=== PATIENT | female | born 1950 | race Caucasian/White ===

== ENCOUNTER 2016-11-19 13:00 | Outpatient (RCR) | payer MEDICARE ==
--- NOTE | 2016-09-02 12:59 | PT/OT/ST INITIAL EVALUATION ---
Department of Health and Human Services Form Approved Health Care Financing Administration OMB No. [id number] PLAN OF CARE/ASSESSMENT FOR OUTPATIENT REHABILITATION (Complete for Initial Claims Only) 1. LAST NAME Ronaldo FIRST NAME Eileen Mayes 2. ACC # [id number] [id number] 4. PROVIDER NO. [id number] 5. TYPE: X PT 6. PRIOR THERAPY (Same condition) 7. PRIMARY DX Right shoulder tendinitis 8. SECONDARY DX Right shoulder pain/instability 9. ONSET DATE July 23, 2016 10. REFERRAL DATE 11. SOC. DATE/TIME 09/01/2016 2:33 p.m. 12. PRIOR LEVEL OF FUNCTION; PERTINENT HISTORY (Prior therapy results, reason for referral.) S: The patient is a 65-year-old female referred to PT by Dr. Luda Melo to address right shoulder pain. The patient came in with complaints of right shoulder pain at the anterior and posterior locations of the glenohumeral joint. She states that she took her turkey out of the oven for Thanksgiving and she felt a pop. Gradually the shoulder has progressively worsened. The pain is worse at night around 7/10. She Is very stiff in the morning and general stiffness all over. She states that it is just not in the shoulder, but in the back. The patient states that she went to another physical therapy location for treatment. She states that she received ASTYM and shoulder mobilizations and she felt an improvement in her symptoms, and then after a few more treatments, she said that things were getting worse for her shoulder and so this is why she is here at [facility]. Overall health rating: The patient rates overall general health as excellent. Therapy History As stated previously, she visited another clinic for physical therapy treatment. The pain was getting worse and improvement was not happening. No obstacles of delivery of care are observed. Maximal pain level is [address] at night. During the day it is a dull ache and it is around a 3 out 10 pain. Aggravating factors includes lifting arms out in front of her with any weight at all. Bringing arms out beside her also causes pain in her right shoulder. Medication list: Medications that she is taking that she feels relief is Tylenol, Advil and she also uses ice. Diagnostic tests: She did have an x-ray. It didn't show anything very remarkable, just a little bit of osteoarthritis. The patient's goal for physical therapy is to feel better and sleep better at night. 13. INITIAL ASSESSMENT/SAFETY PRECAUTIONS/MEDICAL COMPLICATIONS (Level of function at start of care. Be specific, use objective measures, list problems.) O: APPEARANCE AND OBSERVATION: The patient has rounded shoulders, increased kyphotic curvature of the thoracic spine. PALPATION: On palpation of the patient's right shoulder, the patient is tender at anterior and posterior aspects of glenohumeral joint around the bicipital tendon region and then the posterior capsule of the right shoulder. SPECIAL TESTS: Suarez-Roshan was negative. Seaview was negative. Clunk test negative. Neer's positive. Sulcus sign negative. Speeds test negative. Crank was positive and the patient at mid range painful arc sign was positive. QuickDASH: The patient scored a QuickDASH score of 52.3%. STRENGTH: The patient's strength in the right shoulder was 3+/5 for abduction and left shoulder was 4/5 for abduction. Right shoulder flexibility was 3/5 strength and left shoulder flexion was 4/5. TODAY'S TREATMENT: Consisted of an eval, manual therapy, vasopneumatic device and therapeutic exercise. 14. 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 Again the patient's symptoms are similar to these. PROGNOSIS: The patient does have a prognosis with regular therapy attendance and compliance with home exercise program. 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 The patient will be independent with HEP in 1 week for improved prognosis and increase to increase benefits of physical therapy 2. In 2 weeks decrease the patient's pain to 2/10 at night to enable more effective sleep and lessen sleep disturbances so that patient has more energy to perform ADLs. 3. In 6 weeks decrease the patient's QuickDASH score from 52.3% to 25% for improved upper extremity function during performance of ADLs. The diagnosis, prognosis, treatment plan, risks and expected outcome were discussed with the patient and family and they agreed to today's established plan of care. PLAN: Plan to treat the patient 2x/week for 6 weeks. The patient's treatment will consist of modalities to address inflammation, spasming and pain including ultrasound and iontophoresis. The patient will receive manual therapy, such as joint mobilizations, soft tissue manipulation, traction and proprioceptive neuromuscular facilitation. The patient will also receive active range of motion, and therapeutic exercises and proprioceptive treatment, as well as neural reeducation. Possible distraction, therapeutic exercise, active range of motion exercises and proprioceptive training as well as neural reeducation. Wyatt Lee, SPT dictating for Cherry Coates, PT 15. FUNCTIONAL LEVEL (End of claim period) 16. PHYSICIAN SIGNATURE ? ON FILE OR ENTER HERE: 17. DATE: I certify the need for these services furnished under this plan of care and if for partial hospitalization. 18. CERTIFICATION FROM THROUGH FORM
== END 2016-11-29 10:19 | disposition home or self-care (01) ==
LOC: PT 13:00
PROVIDERS: ATTEND Family Medicine
DX: M75.81 Other shoulder lesions, right shoulder (principal); M25.511 Pain in right shoulder
CPT/HCPCS: 97016; 97035; 97110; 97140; 97161; G8984; G8985; G8986